=== PATIENT | male | born 1985 | race American Indian/Alaskan Native ===

== ENCOUNTER 2017-12-04 01:26 | Emergency (ER) | payer MEDICARE ==
[2017-12-04] MEDS ORDERED: MOTRIN PO ONE (06:25)
[2017-12-04] MEDS ORDERED: BOOSTRIX IM ONE (07:41)
[2017-12-04] MEDS ORDERED: THERMAZENE 50 GRAM TP ONE (07:42)
--- NOTE | 2017-12-04 07:50 | Emergency Department Report ---
ED Burn/Smoke HPI - General Chief complaint: Allergic Reaction Stated complaint: ALLERGIC REACTION Time Seen by Provider: 12/04/17 07:31 Source: patient Mode of arrival: Ambulatory Limitations: No Limitations - History of Present Illness Initial comments: This is a 32-year-old male nontoxic, well nourished in appearance, no acute signs of distress presents to the ED with c/o chemical burn. They stated that he was at work using the rubber washer with gloves and the chemicals in the rubber washer got in his gloves and patient went to the restroom without removing them. Patient stated one hour later he developed burning sensation which she then went to wash with water. Patient stated that the groin area now has redness and pain and burning sensation. Patient denies any testicular pain or testicular swelling. Patient denies any penile discharge fever, chills, nausea, vomiting, chest pain, shortness of breath, headache, stiff neck, numbness or tingling. Patient denies any drug allergies or significant past medical history. MD Complaint: chemical exposure -: days(s) (1) Type of Exposure: chemical Smoke Inhalation: none Location: other (groin) Severity: mild Severity scale (0 -10): 8 Associated Symptoms: denies other symptoms. denies: headache, vision changes, cough, diaphoresis, fever/chills, chest pain, flushing, neck pain, nausea/ vomiting - Related Data Previous Rx's Medication Instructions Recorded Last Taken Type Acetaminophen/Codeine [Tylenol 1 tab PO Q6H PRN #12 tab 12/04/17 Unknown Rx /Codeine # 3 tab] Clindamycin [Clindamycin CAP] 300 mg PO Q8H #21 cap 12/04/17 Unknown Rx Ibuprofen [Motrin] 600 mg PO Q8H PRN #30 tablet 12/04/17 Unknown Rx Silver Sulfadiazine [Silvadene] 25 gm TP TID #1 cream..g. 12/04/17 Unknown Rx Allergies Allergy/AdvReac Type Severity Reaction Status Date / Time No Known Allergies Allergy Verified 12/04/17 02:11 Burn HPI - History Stated Complaint: ALLERGIC REACTION Chief Complaint: Allergic Reaction Time Seen by Provider: 12/04/17 07:31 - Home Meds and Allergies Home Medications: Previous Rx's Medication Instructions Recorded Last Taken Type Acetaminophen/Codeine [Tylenol 1 tab PO Q6H PRN #12 tab 12/04/17 Unknown Rx /Codeine # 3 tab] Clindamycin [Clindamycin CAP] 300 mg PO Q8H #21 cap 12/04/17 Unknown Rx Ibuprofen [Motrin] 600 mg PO Q8H PRN #30 tablet 12/04/17 Unknown Rx Silver Sulfadiazine [Silvadene] 25 gm TP TID #1 cream..g. 12/04/17 Unknown Rx Allergies/Adverse Reactions: Allergies Allergy/AdvReac Type Severity Reaction Status Date / Time No Known Allergies Allergy Verified 12/04/17 02:11 ED Review of Systems ROS: Stated complaint: ALLERGIC REACTION Other details as noted in HPI Constitutional: denies: chills, fever Eyes: denies: eye pain, eye discharge, vision change ENT: denies: ear pain, throat pain Respiratory: denies: cough, shortness of breath, wheezing Cardiovascular: denies: chest pain, palpitations Endocrine: no symptoms reported Gastrointestinal: denies: abdominal pain, nausea, vomiting, diarrhea Genitourinary: denies: urgency, dysuria Musculoskeletal: denies: back pain, joint swelling, arthralgia Skin: denies: rash, lesions Neurological: denies: headache, weakness, paresthesias Psychiatric: denies: anxiety, depression Hematological/Lymphatic: denies: easy bleeding, easy bruising ED Past Medical Hx - Past Medical History Hx Asthma: Yes - Surgical History Past Surgical History?: No - Social History Smoking Status: Never Smoker Substance Use Type: None - Medications Home Medications: Home Medications Medication Instructions Recorded Confirmed Last Taken Type Acetaminophen/Codeine [Tylenol 1 tab PO Q6H PRN #12 tab 12/04/17 Unknown Rx /Codeine # 3 tab] Clindamycin [Clindamycin CAP] 300 mg PO Q8H #21 cap 12/04/17 Unknown Rx Ibuprofen [Motrin] 600 mg PO Q8H PRN #30 tablet 12/04/17 Unknown Rx Silver Sulfadiazine [Silvadene] 25 gm TP TID #1 cream..g. 12/04/17 Unknown Rx ED Physical Exam - General Limitations: No Limitations General appearance: alert, in no apparent distress - Head Head exam: Present: atraumatic, normocephalic - Eye Eye exam: Present: normal appearance - ENT ENT exam: Present: mucous membranes moist - Neck Neck exam: Present: normal inspection - Respiratory Respiratory exam: Present: normal lung sounds bilaterally. Absent: respiratory distress, wheezes, rales, rhonchi, stridor, chest wall tenderness, accessory muscle use, decreased breath sounds, prolonged expiratory - Cardiovascular Cardiovascular Exam: Present: regular rate, normal rhythm, normal heart sounds. Absent: bradycardia, tachycardia, irregular rhythm, systolic murmur, diastolic murmur, rubs, gallop - GI/Abdominal GI/Abdominal exam: Present: soft, normal bowel sounds. Absent: distended, tenderness, guarding, rigid, diminished bowel sounds - Rectal Rectal exam: Present: deferred - exam: Present: normal inspection. Absent: testicular tenderness, urethral discharge, scrotal swelling, vertical testicular lie External exam: Present: normal external exam, other (redness in groin area without blisters. no cellulitits. No pus or drainge noted.). Absent: erythema, swelling, lesions, lacerations, ecchymosis, bleeding - Extremities Exam Extremities exam: Present: normal inspection, full ROM, normal capillary refill. Absent: tenderness - Back Exam Back exam: Present: normal inspection, full ROM - Neurological Exam Neurological exam: Present: alert, oriented X3, normal gait - Psychiatric Psychiatric exam: Present: normal affect, normal mood - Skin Skin exam: Present: warm, dry, intact, normal color. Absent: rash ED Course Vital Signs 12/04/17 12/04/17 02:11 06:36 Temperature 98.7 F Pulse Rate 83 Respiratory 16 20 Rate Blood Pressure 100/63 O2 Sat by Pulse 96 Oximetry - Reevaluation(s) Reevaluation #1: 12/04/17 07:50 Patient is speaking in full sentences with no signs of distress noted. ED Medical Decision Making - Medical Decision Making This is a 32-year-old male that presents with superficial chemical burn. Patient is stable and was examined by me. Upon examination there is no testicular swelling, or cellulitis. Patient received Silvadene to the area and a sterile dressing applied. Patient was educated on proper wound care. Patient was referred to a burn care center unit to follow-up in 2-3 days. Patient also received a tetanus booster in the ER. I will discharge patient with clindamycin, Silvadene, Tylenol with codeine. At time of discharge, the patient does not seem toxic or ill in appearance. No acute signs of distress noted. Patient agrees to discharge treatment plan of care. No further questions noted by the patient. Critical care attestation.: If time is entered above; I have spent that time in minutes in the direct care of this critically ill patient, excluding procedure time. ED Disposition Clinical Impression: Superficial chemical burn Disposition: DC-01 TO HOME OR SELFCARE Is pt being admited?: No Does the pt Need Aspirin: No Condition: Stable Instructions: Chemical Skin Burn (ED), Acetaminophen/Codeine (By mouth), Silver Sulfadiazine (On the skin), Ibuprofen (By mouth) Additional Instructions: Follow-up with a [facility] and primary care doctor in 2-3 days or if symptoms worsen and continue return to emergency room as soon as possible. Do not operate any machinery while taking Tylenol with codeine as this may cause drowsiness. Prescriptions: Acetaminophen/Codeine [Tylenol /Codeine # 3 tab] 1 tab PO Q6H PRN #12 tab PRN Reason: Pain , Severe (7-10) Clindamycin [Clindamycin CAP] 300 mg PO Q8H #21 cap Ibuprofen [Motrin] 600 mg PO Q8H PRN #30 tablet PRN Reason: Pain Silver Sulfadiazine [Silvadene] 25 gm TP TID #1 cream..g. Referrals: PRIMARY CAREMD [Primary Care Provider] - 3-5 Days BABATUNDE TALBOT MD [Staff Physician] - 3-5 Days [facility] [Outside] - 3-5 Days [facility] [Outside] - 3-5 Days Forms: Work/School Release Form(ED)
[2017-12-04 08:21] VITALS: BP 102/64
== END 2017-12-04 08:20 | disposition home or self-care (01) ==
LOC: ED 01:26
DX: T21.12XA Burn of first degree of abdominal wall, initial encounter (principal); J45.909 Unspecified asthma, uncomplicated; X08.8XXA Exposure to other specified smoke, fire and flames, initial encounter; Y93.89 Activity, other specified; Y92.89 Other specified places as the place of occurrence of the external cause; Y99.8 Other external cause status
CPT/HCPCS: 90471; 90715

== ENCOUNTER 2018-07-01 00:08 | Emergency (ER) | payer MEDICARE ==
--- NOTE | 2018-07-01 03:43 | Emergency Department Report ---
ED ENT HPI - General Chief complaint: Dental/Oral Stated complaint: HEADACHE AND TOOTHACHE Time Seen by Provider: 07/01/18 03:40 Source: patient Mode of arrival: Ambulatory Limitations: No Limitations - History of Present Illness Initial comments: 33-year-old -Chinese male comes in reporting right side headache and toothache 1 month. Patient reports that he has seen a dentist last week and was placed on ibuprofen and amoxicillin. Patient states that he still has a toothache. Patient denies any smoking cigarettes illicit drugs or alcohol. Patient last took his pain medication yesterday at 3 PM. Patient not any weakness any numbness to his hands or fingers. No change of vision no fever. MD complaint: tooth pain -: month(s) (1) Severity scale (0 -10): 10 Consistency: intermittent Improves with: none Worsens with: none Associated Symptoms: toothache - Related Data Previous Rx's Medication Instructions Recorded Last Taken Type Acetaminophen/Codeine [Tylenol 1 tab PO Q6H PRN #12 tab 12/04/17 Unknown Rx /Codeine # 3 tab] Clindamycin [Clindamycin CAP] 300 mg PO Q8H #21 cap 12/04/17 Unknown Rx Ibuprofen [Motrin] 600 mg PO Q8H PRN #30 tablet 12/04/17 Unknown Rx Silver Sulfadiazine [Silvadene] 25 gm TP TID #1 cream..g. 12/04/17 Unknown Rx Cetirizine HCl [ZyrTEC] 10 mg PO QDAY #14 capsule 07/01/18 Unknown Rx Allergies Allergy/AdvReac Type Severity Reaction Status Date / Time No Known Allergies Allergy Verified 12/04/17 02:11 ED Dental HPI - General Chief complaint: Dental/Oral Stated complaint: HEADACHE AND TOOTHACHE Time Seen by Provider: 07/01/18 03:40 Source: patient Mode of arrival: Ambulatory Limitations: No Limitations - Related Data Previous Rx's Medication Instructions Recorded Last Taken Type Acetaminophen/Codeine [Tylenol 1 tab PO Q6H PRN #12 tab 12/04/17 Unknown Rx /Codeine # 3 tab] Clindamycin [Clindamycin CAP] 300 mg PO Q8H #21 cap 12/04/17 Unknown Rx Ibuprofen [Motrin] 600 mg PO Q8H PRN #30 tablet 12/04/17 Unknown Rx Silver Sulfadiazine [Silvadene] 25 gm TP TID #1 cream..g. 12/04/17 Unknown Rx Cetirizine HCl [ZyrTEC] 10 mg PO QDAY #14 capsule 07/01/18 Unknown Rx Allergies Allergy/AdvReac Type Severity Reaction Status Date / Time No Known Allergies Allergy Verified 12/04/17 02:11 ED Review of Systems ROS: Stated complaint: HEADACHE AND TOOTHACHE Other details as noted in HPI Comment: All other systems reviewed and negative ENT: dental pain Neurological: headache ED Past Medical Hx - Past Medical History Hx Asthma: Yes - Surgical History Past Surgical History?: No - Social History Smoking Status: Never Smoker Substance Use Type: None - Medications Home Medications: Home Medications Medication Instructions Recorded Confirmed Last Taken Type Acetaminophen/Codeine [Tylenol 1 tab PO Q6H PRN #12 tab 12/04/17 Unknown Rx /Codeine # 3 tab] Clindamycin [Clindamycin CAP] 300 mg PO Q8H #21 cap 12/04/17 Unknown Rx Ibuprofen [Motrin] 600 mg PO Q8H PRN #30 tablet 12/04/17 Unknown Rx Silver Sulfadiazine [Silvadene] 25 gm TP TID #1 cream..g. 12/04/17 Unknown Rx Cetirizine HCl [ZyrTEC] 10 mg PO QDAY #14 capsule 07/01/18 Unknown Rx ED Physical Exam - General Limitations: No Limitations General appearance: alert, in no apparent distress, other (patient is difficult to interview as he keeps going to sleep.) - Head Head exam: Present: atraumatic, normocephalic - Eye Eye exam: Present: normal appearance, EOMI - Expanded ENT Exam Expanded Teeth exam: Present: dental caries. Absent: gingival enlargement 1 - Other (dental bacilio) - Neck Neck exam: Present: normal inspection - Respiratory Respiratory exam: Present: normal lung sounds bilaterally - Expanded Neurological Exam Expanded Patient oriented to: Present: person, place Cranial nerves: EOM's Intact: Normal, Gag Reflex: Normal, Tongue Deviation: Normal, Nystagmus: Normal, Facial Sensation: Normal, Facial Palsy with Forehead Movement: Normal, Facial Palsy without Forehead Movement: Normal Cerebellar function: Finger to Nose: Normal, Heel to Chavez: Normal, Romberg: Normal Upper motor neuron: Jimmie Neglect: Normal, Pronator Drift: Normal, Sensory Extinction: Normal Sensory exam: Upper Extremity Light Touch: Normal, Upper Extremity Pin Prick: Normal, Upper Extremity Temperature: Normal, UE 2 Point Discrimination: Normal, Lower Extremity Light Touch: Normal Motor strength exam: RUE: 5, LUE: 5, RLE: 5, LLE: 5 Best Eye Response ([place]): (4) open spontaneously Best Motor Response ([place]): (6) obeys commands Best Verbal Response ([place]): (5) oriented [place] Total: 15 - Psychiatric Psychiatric exam: Present: normal affect, normal mood - Skin Skin exam: Present: warm, dry, intact, normal color. Absent: rash ED Course Vital Signs 07/01/18 00:14 Temperature 97.4 F L Pulse Rate 62 Respiratory 18 Rate Blood Pressure 123/66 O2 Sat by Pulse 97 Oximetry ED Medical Decision Making - Medical Decision Making Patient has been evaluated by this provider in [facility]. Patient is to follow back up with the dentist and continue with his pain medication antibiotics. Patient has a complete and intact neurovascular examination. Patient has no deficits. Patient is to follow-up with [facility]. Patient be given Tylenol and Benadryl in clinic. Critical care attestation.: If time is entered above; I have spent that time in minutes in the direct care of this critically ill patient, excluding procedure time. ED Disposition Clinical Impression: Pain, dental Headache Qualifiers: Headache type: unspecified Headache chronicity pattern: acute headache Intractability: intractable Qualified Code(s): R51 - Headache Disposition: DC-01 TO HOME OR SELFCARE Is pt being admited?: No Does the pt Need Aspirin: No Condition: Stable Instructions: Antihistamine/Acetaminophen (By mouth) Additional Instructions: Please continue with your antibiotics and pain medication. Please take Zyrtec as prescribed for headaches. Follow-up which are primary care provider I have listed [facility] below for your convenience Prescriptions: Cetirizine HCl [ZyrTEC] 10 mg PO QDAY #14 capsule Referrals: [facility] [Provider Group] - 3-5 Days
[2018-07-01] MEDS ORDERED: TYLENOL PO ONE (03:49)
[2018-07-01] MEDS ORDERED: BENADRYL PO ONE (03:49)
[2018-07-01 06:07] VITALS: BP 122/70
== END 2018-07-01 04:10 | disposition home or self-care (01) ==
LOC: ED 00:08
DX: K08.89 Other specified disorders of teeth and supporting structures (principal); J45.909 Unspecified asthma, uncomplicated
CPT/HCPCS: 99282

== ENCOUNTER 2018-10-08 08:28 | Emergency (ER) | payer MEDICARE ==
[2018-10-08 08:41] VITALS: BP 128/78
--- NOTE | 2018-10-08 09:16 | Emergency Department Report ---
Upper Extremity - [facility] Chief Complaint: Extremity Injury, Upper Stated Complaint: CUT ON R HAND Time Seen by Provider: 10/08/18 09:07 ED Review of Systems ROS: Stated complaint: CUT ON R HAND Other details as noted in HPI ED Past Medical Hx - Past Medical History Previous Medical History?: Yes Hx Asthma: Yes - Surgical History Past Surgical History?: No - Social History Smoking Status: Never Smoker Substance Use Type: None - Medications Home Medications: Home Medications Medication Instructions Recorded Confirmed Last Taken Type Acetaminophen/Codeine [Tylenol 1 tab PO Q6H PRN #12 tab 12/04/17 Unknown Rx /Codeine # 3 tab] Clindamycin [Clindamycin CAP] 300 mg PO Q8H #21 cap 12/04/17 Unknown Rx Silver Sulfadiazine [Silvadene] 25 gm TP TID #1 cream..g. 12/04/17 Unknown Rx Cetirizine HCl [ZyrTEC] 10 mg PO QDAY #14 capsule 07/01/18 Unknown Rx Ibuprofen [Motrin 600 MG tab] 600 mg PO Q8H PRN #30 tablet 10/08/18 Unknown Rx Sulfamethoxazole/Trimethoprim 1 each PO Q12HR 10 Days #20 tablet 10/08/18 Unknown Rx [Bactrim DS TAB] Upper Extremity Exam - Exam General: Vital signs noted. No distress. Alert and acting appropriately. ED Course Vital Signs 10/08/18 08:38 Temperature 98 F Pulse Rate 80 Respiratory 18 Rate Blood Pressure 128/78 O2 Sat by Pulse 99 Oximetry ED Medical Decision Making - Radiology Data Radiology results: report reviewed X-rays reveal right hand dictated by radiologist's report. Please see report below. Findings [facility] [address] [place] [address] XRay Report Signed Patient: FRANCO MARSH MR#: [id number] : 1985 Acct:[id number] Age/Sex: 33 / M ADM Date: 10/08/18 Loc: ED Attending Dr: Ordering Physician: LASHELL EPPS Date of Service: 10/08/18 Procedure(s): XR hand 3+V RT Accession Number(s): [id number] cc: LASHELL EPPS Fluoro Time In Minutes: PROCEDURE: XR HAND 3+V RT TECHNIQUE: 3 views obtained of the right hand HISTORY: RT hand injury with laceration COMPARISONS: No priors FINDINGS: There is no evidence of acute fracture or dislocation. No radiopaque foreign bodies are IMPRESSION: No acute fracture or radiopaque foreign body.. This document is electronically signed by Chucky Crowell MD., October 08 2018 09:53:35 AM ET Transcribed By: SUSI Dictated By: CHUCKY CROWELL MD Electronically Authenticated By: CHUCKY CROWELL MD Signed Date/Time: 10/08/18955 DD/ 0 TD/TT: 10/08/18940 - Medical Decision Making This 33-year-old male here for injured her right hand after hitting hand on a hard surface yesterday. She reports that he had a small laceration. Physical finding for 3 cm superficial laceration to fourth metacarpal bone area extending between third and fourth webspace.. Minimal swelling and tenderness to right hand. He has full range of motion to right hand without any abnormalities in movement to his fingers and reports pain with movement. X-ray findings for no acute abnormality. Patient with right hand contusion, laceration with delayed treatment and arthralgia to right hand. Patient tetanus vaccine is less than 5 years per patient .wound care done by RN and sterile dry dressing placed a fight. He was given Motrin 800 mg. Emergency room for pain which he voiced relief of pain and also started on Bactrim DS to prevent infection. Patient was given information on diagnosis, medication, treatment plan and need to follow-up and information on signs and symptoms of infection and when to return to the emergency room and he voiced understanding. He is pain-free and discharged home in stable condition with prescription for Bactrim and Motrin and follow-up with outside Medical Center and 2-3 days. - Differential Diagnosis FX/ would open lac ,dislocation, contusion, Critical care attestation.: If time is entered above; I have spent that time in minutes in the direct care of this critically ill patient, excluding procedure time. ED Disposition Clinical Impression: Arthralgia of hand, right Contusion Qualifiers: Encounter type: initial encounter Contusion area: hand Laterality: right Qualified Code(s): S60.221A - Contusion of right hand, initial encounter Laceration of hand with delay in treatment Qualifiers: Encounter type: initial encounter Laterality: right Qualified Code(s): S61.411A - Laceration without foreign body of right hand, initial encounter Disposition: DC-01 TO HOME OR SELFCARE Is pt being admited?: No Does the pt Need Aspirin: No Condition: Stable Instructions: Laceration (ED), Acute Wound Care (ED), Arthralgia (ED), RICE Therapy (ED) Additional Instructions: Please copy primary care physician in 2-3 days and if he do not have one follow- up with orthopedic Medical Center Take medications as prescribed See information or ice therapy and acute wound care Bactrim is free at [facility]. This is the antibiotic that he needed to take twice daily to prevent infection to right hand If he develops fever, redness and swelling around wound site, increased drainage, numbness, tingling and stiffness to right hand and fingers of right hand with redness radiating to wrist and forearm on beyond, return to emergency room [facility] Prescriptions: Sulfamethoxazole/Trimethoprim [Bactrim DS TAB] 1 each PO Q12HR 10 Days #20 tablet Ibuprofen [Motrin 600 MG tab] 600 mg PO Q8H PRN #30 tablet PRN Reason: Pain Referrals: [facility] [Outside] - 10/10/18 ANDREA DANIEL MD [Primary Care Provider] - 10/10/18 Forms: Work/School Release Form(ED)
[2018-10-08] MEDS: IBUPROFEN PO ONE (09:29)
--- NOTE | 2018-10-08 09:56 | XRay Report ---
PROCEDURE: XR HAND 3+V RT TECHNIQUE: 3 views obtained of the right hand HISTORY: RT hand injury with laceration COMPARISONS: No priors FINDINGS: There is no evidence of acute fracture or dislocation. No radiopaque foreign bodies are IMPRESSION: No acute fracture or radiopaque foreign body.. This document is electronically signed by Chucky Crowell MD., October 08 2018 09:53:35 AM ET
[2018-10-08] MEDS ORDERED: BACTRIM DS PO SCH (10:00)
== END 2018-10-08 10:28 | disposition home or self-care (01) ==
LOC: ED 08:28
DX: S61.411A Laceration without foreign body of right hand, initial encounter (principal); J45.909 Unspecified asthma, uncomplicated; Z79.899 Other long term (current) drug therapy; X99.9XXA Assault by unspecified sharp object, initial encounter; Y93.89 Activity, other specified; Y92.89 Other specified places as the place of occurrence of the external cause; Y99.8 Other external cause status
CPT/HCPCS: 99283

== ENCOUNTER 2020-06-17 13:04 | Emergency (ER) | payer MEDICARE | END 2020-06-17 13:27 | disposition left against medical advice (07) | LOC: ED 13:04 | DX: Z53.21 Procedure and treatment not carried out due to patient leaving prior to being seen by health care provider (principal) ==